=== PATIENT | female | born 1995 | race Caucasian/White ===

== ENCOUNTER 2020-03-13 13:11 | Emergency (ER) | payer MEDICAID ==
[2020-03-13] MEDS ORDERED: Sodium Chloride 0.9% 1,000 ML IV STA (13:37)
--- NOTE | 2020-03-13 13:42 | EDM.PDOC ---
ED HPI GENERAL MEDICAL PROBLEM - General Chief Complaint: Abdominal Pain Stated Complaint: R SIDE PAIN/NAUSEA/DIZZY/VOMITING Time Seen by Provider: 03/13/20 13:14 Source of Information: Reports: Patient History Limitations: Reports: No Limitations - History of Present Illness INITIAL COMMENTS - FREE TEXT/NARRATIVE: Patient is a 25-year-old female presenting to the emergency department with complaints of right lower quadrant abdominal pain, nausea, and vomiting. Abdominal pain started on Saturday which was about 4 days ago. She describes it as a sharp stabbing pain which worsens with movement or any activity. Pain has been present consistently since Saturday. States it does not wax and wane. She developed nausea and vomiting yesterday. She had a bowel movement ye which she states was normal. She is had some chills but denies a known fever. She has no chronic health conditions and denies any previous abdominal surgeries. Right Lower Abdomen Pain Score (Numeric/FACES): 4 - Related Data Allergies Allergy/AdvReac Type Severity Reaction Status Date / Time bee pollen Allergy Severe Anaphylactic Verified 03/13/20 13:21 Shock Home Meds: Home Meds . [No Known Home Meds] 03/13/20 [History] Past Medical History Respiratory History: Reports: Asthma - Infectious Disease History Infectious Disease History: Reports: Chicken Pox - Past Surgical History Female Surgical History: Reports: Other (See Below) Other Female Surgeries/Procedures: removal of infected placenta Social & Family History - Family History Family Medical History: Noncontributory - Tobacco Use Smoking Status *Q: Current Every Day Smoker Years of Tobacco use: 3 Packs/Tins Daily: 0.3 - Caffeine Use Caffeine Use: Reports: Coffee, Energy Drinks, Soda, Tea - Recreational Drug Use Recreational Drug Use: No ED ROS GENERAL - Review of Systems Review Of Systems: See Below Constitutional: Reports: Chills. Denies: Fever HEENT: Reports: No Symptoms Respiratory: Reports: No Symptoms. Denies: Shortness of Breath, Cough Cardiovascular: Reports: No Symptoms Endocrine: Reports: No Symptoms GI/Abdominal: Reports: Abdominal Pain, Nausea, Vomiting : Reports: No Symptoms Musculoskeletal: Reports: No Symptoms Skin: Reports: No Symptoms Neurological: Reports: No Symptoms Psychiatric: Reports: No Symptoms Hematologic/Lymphatic: Reports: No Symptoms Immunologic: Reports: No Symptoms ED EXAM, GI/ABD - Physical Exam Exam: See Below General Appearance: Alert, WD/WN, No Apparent Distress Respiratory/Chest: No Respiratory Distress, Lungs Clear, Normal Breath Sounds, No Accessory Muscle Use, Chest Non-Tender Cardiovascular: Normal Peripheral Pulses, Regular Rate, Rhythm, No Edema, No Gallop, No JVD, No Murmur, No Rub GI/Abdominal Exam: Normal Bowel Sounds, Soft, No Organomegaly, No Distention, No Abnormal Bruit, No Mass, Pelvis Stable, Tender (Right lower quadrant). No: Guarding, Rigid, Rebound Neurological: Alert, Oriented, CN II-XII Intact, Normal Cognition, Normal Gait, Normal Reflexes, No Motor/Sensory Deficits Psychiatric: Normal Affect, Normal Mood Skin Exam: Warm, Dry, Intact, Normal Color, No Rash Course - Vital Signs Last Recorded V/S: Last Vital Signs Temp 97.3 F 03/13/20 13:18 Pulse 101 H 03/13/20 13:18 Resp 19 03/13/20 13:18 BP 132/96 H 03/13/20 13:18 Pulse Ox 99 03/13/20 13:18 - Orders/Labs/Meds Orders: Active Orders 24 hr Category Date Time Status Peripheral IV Care [RC] . DIRECTED Care 03/13/20 13:25 Active Abdomen Pelvis w Cont [CT] Stat Exams 03/13/20 13:37 Taken Transvaginal Non OB [US] Stat Exams 03/13/20 16:20 Taken Sodium Chloride 0.9% [Normal Saline] 1,000 ml Med 03/13/20 13:37 Active IV NOW Sodium Chloride 0.9% [Saline Flush] Med 03/13/20 13:25 Active 10 ml FLUSH ASDIRECTED PRN Peripheral IV Insertion Adult [OM.PC] Stat Oth 03/13/20 13:24 Ordered Medication Orders Sodium Chloride (Normal Saline) 1,000 mls @ 150 mls/hr IV NOW STA Stop: 03/13/20 20:16 Last Admin: 03/13/20 14:13 Dose: 150 mls/hr Documented by: PATRIZIA Sodium Chloride (Saline Flush) 10 ml FLUSH ASDIRECTED PRN PRN Reason: Keep Vein Open Last Admin: 03/13/20 15:51 Dose: 10 ml Documented by: Admin: 10/11/20 14:13 Dose: 10 ml Documented by: PATRIZIA Labs: Laboratory Tests 03/13/20 03/13/20 03/13/20 Range/Units 13:50 13:50 13:55 WBC 8.78 (3.98-10.04) K/mm3 RBC 4.37 (3.98-5.22) M/mm3 Hgb 14.1 (11.2-15.7) gm/dl Hct 43.2 (34.1-44.9) % MCV 98.9 H (79.4-94.8) fl MCH 32.3 H (25.6-32.2) pg MCHC 32.6 (32.2-35.5) g/dl RDW Std Deviation 45.4 (36.4-46.3) fL Plt Count 355 (182-369) K/mm3 MPV 10.0 (9.4-12.3) fl Neut % (Auto) 71.9 H (34.0-71.1) % Lymph % (Auto) 20.4 (19.3-51.7) % Nye % (Auto) 6.6 (4.7-12.5) % Eos % (Auto) 0.7 (0.7-5.8) Baso % (Auto) 0.2 (0.1-1.2) % Neut # (Auto) 6.31 H (1.56-6.13) K/mm3 Lymph # (Auto) 1.79 (1.18-3.74) K/mm3 Nye # (Auto) 0.58 H (0.24-0.36) K/mm3 Eos # (Auto) 0.06 (0.04-0.36) K/mm3 Baso # (Auto) 0.02 (0.01-0.08) K/mm3 Sodium 139 (136-145) mEq/L Potassium 3.6 (3.5-5.1) mEq/L Chloride 103 (98-107) mEq/L Carbon Dioxide 23 (21-32) mEq/L Anion Gap 16.6 H (5-15) BUN 12 (7-18) mg/dL Creatinine 0.8 (0.55-1.02) mg/dL Est Cr Clr Drug Dosing 91.21 mL/min Estimated GFR (MDRD) > 60 (>60) mL/min BUN/Creatinine Ratio 15.0 (14-18) Glucose 85 (74-106) mg/dL Calcium 8.9 (8.5-10.1) mg/dL Total Bilirubin 0.3 (0.2-1.0) mg/dL AST 29 (15-37) U/L ALT 41 (14-59) U/L Alkaline Phosphatase 106 (46-116) U/L C-Reactive Protein 0.8 (<1.0) mg/dL Total Protein 7.0 (6.4-8.2) g/dl Albumin 3.6 (3.4-5.0) g/dl Globulin 3.4 gm/dL Albumin/Globulin Ratio 1.1 (1-2) Urine Color Light yellow (Yellow) Urine Appearance Clear (Clear) Urine pH 6.5 (5.0-8.0) Ur Specific Fri[place] 1.010 (1.005-1.030) Urine Protein Negative (Negative) Urine Glucose (UA) Negative (Negative) Urine Ketones Negative (Negative) Urine Occult Blood Negative (Negative) Urine Nitrite Negative (Negative) Urine Bilirubin Negative (Negative) Urine Urobilinogen 0.2 (0.2-1.0) Ur Leukocyte Esterase Negative (Negative) Urine RBC 0-5 (0-5) /hpf Urine WBC 0-5 (0-5) /hpf Ur Squamous Epith Cells 0-5 (0-5) /hpf Urine Bacteria Rare (FEW) /hpf Urine Mucus Not seen (FEW) /hpf SARS-CoV-2 RNA (LUCIANO) (NEGATIVE) 03/13/20 Range/Units 13:55 WBC (3.98-10.04) K/mm3 RBC (3.98-5.22) M/mm3 Hgb (11.2-15.7) gm/dl Hct (34.1-44.9) % MCV (79.4-94.8) fl MCH (25.6-32.2) pg MCHC (32.2-35.5) g/dl RDW Std Deviation (36.4-46.3) fL Plt Count (182-369) K/mm3 MPV (9.4-12.3) fl Neut % (Auto) (34.0-71.1) % Lymph % (Auto) (19.3-51.7) % Nye % (Auto) (4.7-12.5) % Eos % (Auto) (0.7-5.8) Baso % (Auto) (0.1-1.2) % Neut # (Auto) (1.56-6.13) K/mm3 Lymph # (Auto) (1.18-3.74) K/mm3 Nye # (Auto) (0.24-0.36) K/mm3 Eos # (Auto) (0.04-0.36) K/mm3 Baso # (Auto) (0.01-0.08) K/mm3 Sodium (136-145) mEq/L Potassium (3.5-5.1) mEq/L Chloride (98-107) mEq/L Carbon Dioxide (21-32) mEq/L Anion Gap (5-15) BUN (7-18) mg/dL Creatinine (0.55-1.02) mg/dL Est Cr Clr Drug Dosing mL/min Estimated GFR (MDRD) (>60) mL/min BUN/Creatinine Ratio (14-18) Glucose (74-106) mg/dL Calcium (8.5-10.1) mg/dL Total Bilirubin (0.2-1.0) mg/dL AST (15-37) U/L ALT (14-59) U/L Alkaline Phosphatase (46-116) U/L C-Reactive Protein (<1.0) mg/dL Total Protein (6.4-8.2) g/dl Albumin (3.4-5.0) g/dl Globulin gm/dL Albumin/Globulin Ratio (1-2) Urine Color (Yellow) Urine Appearance (Clear) Urine pH (5.0-8.0) Ur Specific Fri[place] (1.005-1.030) Urine Protein (Negative) Urine Glucose (UA) (Negative) Urine Ketones (Negative) Urine Occult Blood (Negative) Urine Nitrite (Negative) Urine Bilirubin (Negative) Urine Urobilinogen (0.2-1.0) Ur Leukocyte Esterase (Negative) Urine RBC (0-5) /hpf Urine WBC (0-5) /hpf Ur Squamous Epith Cells (0-5) /hpf Urine Bacteria (FEW) /hpf Urine Mucus (FEW) /hpf SARS-CoV-2 RNA (LUCIANO) Negative (NEGATIVE) Meds: Medications Generic Name Dose Route Start Last Admin Trade Name Freq PRN Reason Stop Dose Admin Sodium Chloride 1,000 mls @ 150 mls/hr 03/13/20 13:37 03/13/20 14:13 Normal Saline IV 03/13/20 20:16 150 mls/hr NOW STA Administration Sodium Chloride 10 ml 03/13/20 13:25 03/13/20 15:51 Saline Flush FLUSH 10 ml ASDIRECTED PRN Administration Keep Vein Open Discontinued Medications Generic Name Dose Route Start Last Admin Trade Name Freq PRN Reason Stop Dose Admin Diatrizoate Meglum/Diatrizoate Sod 90 ml 03/13/20 15:49 03/13/20 15:51 Gastrografin 37% PO 03/13/20 15:50 90 ml ONETIME ONE Administration Sodium Chloride 100 mls @ 4 mls/sec 03/13/20 15:49 Normal Saline IV 03/13/20 15:50 ONETIME ONE - Re-Assessments/Exams Free Text/Narrative Re-Assessment/Exam: Patient is a 25-year-old female presenting to the emergency department with complaints of 4-day history of right lower quadrant abdominal pain and development of nausea and vomiting yesterday. She is had no known fever but does state that she feels chilled at times. She denies any diarrhea. Had a normal bowel movement yesterday. She has no respiratory symptoms such as cough or shortness of breath. She has no history of previous abdominal surgeries. I have ordered a CBC, CMP, CRP, lipase, urinalysis, CT scan of the abdomen pelvis. She denies the need for pain or nausea medications at this time. We will start normal saline at 150 mils per hour. 03/13/20 16:29 CT neck scan of the abdomen pelvis showed indeterminate 3.8 x 1.8 cm right ovarian lesion. Recommend further evaluation with ultrasound if clinically indicated.. No pericecal soft tissue stranding. Patient's hematology was gross ly unremarkable. Urinalysis was negative for infection. I have ordered a non- OB transvaginal ultrasound to better assess the right ovary. 03/13/20 18:19 Transvaginal ultrasound showed 2 simple cysts within the right or ovary. Benign findings in the physiologic size range. No follow-up is needed. Discussed these findings with the patient. Her other blood work was completely unremarkable. Urinalysis was negative for infection. Her nausea and vomiting may be related to viral gastroenteritis. Zofran was offered for nausea, however she declined. Recommend routine Tylenol and ibuprofen as needed for pain. Clear liquid diet for 24 to 48 hours. She should establish care with a engine generator assembler as needed. Return to the ER for worsening symptoms. Departure - Departure Time of Disposition: 18:20 Disposition: Home, Self-Care 01 Condition: Good Clinical Impression: Abdominal pain Qualifiers: Abdominal location: right lower quadrant Qualified Code(s): R10.31 - Right lower quadrant pain Vomiting Qualifiers: Vomiting type: unspecified Vomiting Intractability: non-intractable Nausea presence: with nausea Qualified Code(s): R11.2 - Nausea with vomiting, unspecified - Discharge Information *PRESCRIPTION DRUG MONITORING PROGRAM REVIEWED*: No *COPY OF PRESCRIPTION DRUG MONITORING REPORT IN PATIENT AJYLIN: No Instructions: Abdominal Pain, Adult, [id number], Nausea and Vomiting, Adult Referrals: PCP,Not In Area [Primary Care Provider] - Forms: ED Department Discharge Additional Instructions: Your seen in the emergency department today for right lower quadrant abdominal pain over the course of the last 5 days as well as nausea and vomiting yesterday. He work-up included blood work, urinalysis, a CT scan of your abdomen pelvis, and a transvaginal ultrasound. Results of your work-up did show that you have 2 simple cysts in your right ovary which are a normal finding. Remainder of your work-up was completely unremarkable. Recommend that you use [id number] Tylenol and ibuprofen as needed for discomfort. Clear liquid diet for the next 24 to 48 hours and then advance as tolerated. I would recommend that you establish care with a engine generator assembler if you are going to be staying in the area. Number to schedule with 1 of the engine generator assembler in the clinic is [phone]. If you should experience any worsening symptoms, please not hesitate to return to the emergency department. Sepsis Event Note (ED) - Evaluation Sepsis Screening Result: No Definite Risk - Focused Exam Vital Signs: Vital Signs Temp Pulse Resp BP Pulse Ox 03/13/20 13:18 97.3 F 101 H 19 132/96 H 99 - My Orders Last 24 Hours: My Active Orders 03/13/20 13:24 Peripheral IV Insertion Adult [OM.PC] Stat 03/13/20 13:25 Peripheral IV Care [RC] . DIRECTED Sodium Chloride 0.9% [Saline Flush] 10 ml FLUSH ASDIRECTED PRN 03/13/20 13:37 Abdomen Pelvis w Cont [CT] Stat Sodium Chloride 0.9% [Normal Saline] 1,000 ml IV NOW 03/13/20 16:20 Transvaginal Non OB [US] Stat - Assessment/Plan Last 24 Hours: My Active Orders 03/13/20 13:24 Peripheral IV Insertion Adult [OM.PC] Stat 03/13/20 13:25 Peripheral IV Care [RC] . DIRECTED Sodium Chloride 0.9% [Saline Flush] 10 ml FLUSH ASDIRECTED PRN 03/13/20 13:37 Abdomen Pelvis w Cont [CT] Stat Sodium Chloride 0.9% [Normal Saline] 1,000 ml IV NOW 03/13/20 16:20 Transvaginal Non OB [US] Stat
[2020-03-13] MEDS: Sodium Chloride 0.9% 10 ML Syringe FLUSH PRN ×2 (14:13→15:51)
[2020-03-13] MEDS ORDERED: Diatrizoate Meglumine/Diatrizoate Sodium 37% 120 ML Bottle PO ONE (15:49)
[2020-03-13] MEDS ORDERED: Sodium Chloride 0.9% 100 ML IV ONE (15:49)
== END 2020-03-13 18:30 | disposition home or self-care (01) ==
LOC: JD.ED 13:11
DX: R10.31 Right lower quadrant pain (principal); R11.2 Nausea with vomiting, unspecified; J45.909 Unspecified asthma, uncomplicated; F17.210 Nicotine dependence, cigarettes, uncomplicated; Z20.828 Contact with and (suspected) exposure to other viral communicable diseases; Z91.030 Bee allergy status
CPT/HCPCS: 36415; 74177; 76830; 80053; 81001; 85025; 86140; 87635; 99284; J7030; Q9963; U0002

== ENCOUNTER 2021-05-01 09:20 | Emergency (ER) | payer SELFPAY ==
--- NOTE | 2021-05-01 10:40 | EDM.PDOC ---
ED HPI GENERAL MEDICAL PROBLEM - General Chief Complaint: Behavioral/Psych Stated Complaint: CHEST PAIN\\ DIZZY Time Seen by Provider: 05/01/21 10:19 Source of Information: Reports: Patient - History of Present Illness INITIAL COMMENTS - FREE TEXT/NARRATIVE: 26 yr old female with onset of anxiety that turned into a panic attack late last night. She did get short of breath, developed numbness and tingling around mouth, and bilat upper extem to "where I could hardly move for awhile" She still feels like it is hard to take a deep breath. Has not been recently ill. Chest Pain Score (Numeric/FACES): 4 - Related Data Allergies Allergy/AdvReac Type Severity Reaction Status Date / Time bee pollen Allergy Severe Anaphylactic Verified 05/01/21 09:34 Shock Home Meds: Home Meds LORazepam [Ativan] 0.5 mg PO ONETIME PRN #6 tablet 05/01/21 [Rx] Past Medical History Respiratory History: Reports: Asthma Psychiatric History: Reports: Anxiety - Infectious Disease History Infectious Disease History: Reports: Chicken Pox - Past Surgical History Female Surgical History: Reports: Other (See Below) Other Female Surgeries/Procedures: removal of infected placenta Social & Family History - Family History Family Medical History: No Pertinent Family History - Tobacco Use Tobacco Use Status *Q: Current Every Day Tobacco User Years of Tobacco use: 7 Packs/Tins Daily: 0.5 - Caffeine Use Caffeine Use: Reports: Coffee, Energy Drinks, Soda - Recreational Drug Use Recreational Drug Use: No ED ROS GENERAL - Review of Systems Review Of Systems: See Below Constitutional: Denies: Fever, Chills HEENT: Denies: Throat Pain Respiratory: Reports: Shortness of Breath. Denies: Cough Cardiovascular: Reports: Chest Pain GI/Abdominal: Denies: Abdominal Pain, Nausea, Vomiting Musculoskeletal: Denies: Arm Pain, Leg Pain Skin: Reports: No Symptoms Neurological: Reports: Numbness, Tingling ED EXAM, GENERAL - Physical Exam Exam: See Below General Appearance: Alert, No Apparent Distress Head: Atraumatic Neck: Supple Respiratory/Chest: No Respiratory Distress, Lungs Clear, Normal Breath Sounds. No: Rhonchi, Wheezing Cardiovascular: Regular Rate, Rhythm Extremities: No Pedal Edema Neurological: Alert, Oriented, No Motor/Sensory Deficits Skin Exam: Warm, Dry, Normal Color Course - Vital Signs Last Recorded V/S: Last Vital Signs Temp 97.3 F 05/01/21 09:31 Pulse 95 05/01/21 09:31 Resp 18 05/01/21 09:31 BP 132/87 05/01/21 09:31 Pulse Ox 100 05/01/21 09:31 - Re-Assessments/Exams Free Text/Narrative Re-Assessment/Exam: 05/02/21 18:53 cardiac moniter show NSR, no ectopy. Sats 98 to 100 % room air. Departure - Departure Time of Disposition: 10:34 Disposition: Home, Self-Care 01 Condition: Fair Clinical Impression: Hyperventilation syndrome - Discharge Information Prescriptions: LORazepam [Ativan] 0.5 mg PO ONETIME PRN #6 tablet PRN Reason: Anxiety Instructions: Hyperventilation Referrals: PCP,None [Primary Care Provider] - Forms: ED Department Discharge Additional Instructions: Your heart and lungs are good, oxygenation normal. As discussed the numbness and tingling is part of the hyperventilation syndrome due to chemistry changes that occur with that. Ativan 0.5 mg if you ever feel this coming on again. Follow up with your regular medical provider as needed. Return to ED as needed if symptoms worsening in any way. Sepsis Event Note (ED) - Evaluation Sepsis Screening Result: No Definite Risk
== END 2021-05-01 10:50 | disposition home or self-care (01) ==
LOC: JD.ED 09:20
DX: F45.8 Other somatoform disorders (principal); J45.909 Unspecified asthma, uncomplicated; Z72.0 Tobacco use; Z91.030 Bee allergy status
CPT/HCPCS: 99283

== ENCOUNTER 2024-09-18 13:48 | Emergency (ER) | payer MEDICAID ==
[2024-09-18] MEDS: Sodium Chloride 0.9% 1,000 ML IV ONE (14:49)
[2024-09-18 14:53] LABS: BASOPHILS ABSOLUTE AUTO 0.1 K/mm3 (0.0-0.2); BASOPHILS PERCENT AUTO 0.7 % (0.0-1.0); EOSINOPHILS ABSOLUTE AUTO 0.1 K/mm3 (0.0-0.4); EOSINOPHILS PERCENT AUTO 0.6 % (0.0-6.0); HEMATOCRIT 42.5 % (37.0-47.0); HEMOGLOBIN 14.7 gm/dl (12.0-16.0); IMMATURE GRAN ABSOLUTE AUTO 0.02 K/mm3 (0.00-0.05); IMMATURE GRAN PERCENT AUTO 0.2 % (0.0-0.4); LYMPHOCYTES PERCENT AUTO 12.3 % (24.0-44.0); MEAN CORPUSCULAR HEMOGLOBIN 36.2 pg (28.0-32.0); MEAN CORPUSCULAR HGB CONC 34.6 g/dl (32.0-36.0); MEAN CORPUSCULAR VOLUME 104.7 fl (83.0-99.0); MEAN PLATELET VOLUME 9.6 fl (9.4-12.3); MONOCYTES ABSOLUTE AUTO 0.6 K/mm3 (0.0-0.8); MONOCYTES PERCENT AUTO 6.7 % (0.0-8.0); NEUTROPHILS ABSOLUTE AUTO 6.5 K/mm3 (1.8-7.7); NEUTROPHILS PERCENT AUTO 79.5 % (41.0-71.0); PLATELET COUNT,PLT 202 K/mm3 (150-400); RED BLOOD CELL COUNT 4.06 M/mm3 (4.10-5.30)
[2024-09-18 15:32] LABS: A/G RATIO 1.1 (1-2); ALANINE AMINOTRANSFERASE,ALT 114 U/L (14-59); ALKALINE PHOSPHATASE 101 U/L (46-116); ANION GAP 20.1 (5-15); ASPARTATE AMNIOTRANSFERASE,AST 200 U/L (15-37); BILIRUBIN TOTAL 1.3 mg/dL (0.2-1.0); BLOOD UREA NITROGEN,BUN 4 mg/dL (7-18); BUN/CREATININE RATIO 6.7 (14-18); CALCIUM 9.1 mg/dL (8.5-10.1); CARBON DIOXIDE,CO2 24 mEq/L (21-32); CHLORIDE,CL 99 mEq/L (98-107); CREATININE 0.6 mg/dL (0.55-1.02); ESTIMATED GFR 123 mL/min (>60); GLUCOSE RANDOM 81 mg/dL (70-99); MAGNESIUM 1.3 mg/dL (1.8-2.4); POTASSIUM,K 3.1 mEq/L (3.5-5.1); PROTEIN TOTAL,TP 7.8 g/dl (6.4-8.2); SODIUM,NA 140 mEq/L (136-145)
[2024-09-18] MEDS: Potassium Chloride 20 MEQ Tab.ER PO ONE (16:35)
[2024-09-18] MEDS: Magnesium Sulf/Wat 2 GM/50 mL 2 GM/50 ML BAG IV ONE (16:35)
[2024-09-18 16:49] LABS: APPEARANCE,URINE SLT CLOUDY (Clear); BILIRUBIN,URINE 1+ (Negative); COLOR,URINE AMBER (Yellow); GLUCOSE,URINE NEGATIVE (Negative); KETONES,URINE 2+ (Negative); LEUKOCYTE ESTERASE,URINE NEGATIVE (Negative); NITRITE,URINE POSITIVE (Negative); OCCULT BLOOD,URINE NEGATIVE (Negative); PH,URINE 6.5 (5.0-8.0); PROTEIN,URINE 2+ (Negative)
[2024-09-18 16:52] LABS: BACTERIA,URINE MANY /hpf (FEW); MUCUS,URINE MODERATE /hpf (FEW); RBC,URINE 0-5 /hpf (0-5); SQUAMOUS EPITHELIAL CELLS,UR 0-5 /hpf (0-5)
[2024-09-18] MEDS: Iopamidol 612 MG/ML 100 ML Bottle IVPUSH ONE (16:53)
[2024-09-18] MEDS: Sodium Chloride 0.9% 10 ML Syringe FLUSH ONE (16:53)
[2024-09-18] MEDS: cefTRIAXone 1 GM Vial IVPUSH ONE (17:42)
== END 2024-09-18 17:49 | disposition home or self-care (01) ==
LOC: JD.ED 13:48
DX: N30.01 Acute cystitis with hematuria (principal); M62.838 Other muscle spasm; Z91.030 Bee allergy status; Z79.899 Other long term (current) drug therapy
CPT/HCPCS: 36415; 70450; 74177; 80053; 80307; 81001; 81025; 83735; 85025; 87086; 96361; 96374; 96375; 99285; A9270; J0696; J3475; J7030; Q9967; 99284

== ENCOUNTER 2025-02-08 18:47 | Emergency (ER) | payer SELFPAY ==
[2025-02-08] MEDS: Dexamethasone 10 MG/ML SDV IV ONE (20:26)
[2025-02-08 20:27] LABS: BASOPHILS ABSOLUTE AUTO 0.0 K/mm3 (0.0-0.2); BASOPHILS PERCENT AUTO 0.3 % (0.0-1.0); EOSINOPHILS ABSOLUTE AUTO 0.0 K/mm3 (0.0-0.4); EOSINOPHILS PERCENT AUTO 0.2 % (0.0-6.0); IMMATURE GRAN ABSOLUTE AUTO 0.06 K/mm3 (0.00-0.05); IMMATURE GRAN PERCENT AUTO 0.5 % (0.0-0.4); LYMPHOCYTES ABSOLUTE AUTO 0.7 K/mm3 (1.0-4.8); LYMPHOCYTES PERCENT AUTO 5.5 % (24.0-44.0); MEAN PLATELET VOLUME 9.4 fl (9.4-12.3); MONOCYTES ABSOLUTE AUTO 0.7 K/mm3 (0.0-0.8); MONOCYTES PERCENT AUTO 5.5 % (0.0-8.0); NEUTROPHILS ABSOLUTE AUTO 11.1 K/mm3 (1.8-7.7); NEUTROPHILS PERCENT AUTO 88.0 % (41.0-71.0); NRBC ABSOLUTE 0.00 (0.00-0.02); NRBC PERCENT 0.0 % (0.0-0.2); PLATELET COUNT,PLT 248 K/mm3 (150-400); RED BLOOD CELL COUNT 3.91 M/mm3 (4.10-5.30); WHITE BLOOD CELL COUNT,WBC 12.64 K/mm3 (3.9-11.3)
[2025-02-08] MEDS: Ampicillin/Sulbactam Na 3 GM in Sodium Chloride 0.9% 100 ML IV ONE (20:27)
[2025-02-08] MEDS: Acetaminophen/HYDROcodone 325-5 MG Tab PO ONE (21:04)
[2025-02-08 21:15] LABS: A/G RATIO 1.0 (1-2); ALANINE AMINOTRANSFERASE,ALT 96.0 U/L (14-59); ASPARTATE AMNIOTRANSFERASE,AST 157.0 U/L (15-37); BILIRUBIN TOTAL 0.8 mg/dL (0.2-1.0); BLOOD UREA NITROGEN,BUN 4.0 mg/dL (7-18); CARBON DIOXIDE,CO2 24.0 mEq/L (21-32); CHLORIDE,CL 101.0 mEq/L (98-107); CREATININE 0.6 mg/dL (0.55-1.02); EST CRCL DRUG DOSING (CG) 126.01 mL/min; ESTIMATED GFR 122.0 mL/min (>60); GLUCOSE RANDOM 105.0 mg/dL (70-99); POTASSIUM,K 3.6 mEq/L (3.5-5.1); PROTEIN TOTAL,TP 7.5 g/dl (6.4-8.2); SODIUM,NA 140.0 mEq/L (136-145)
[2025-02-08] MEDS: Iopamidol 612 MG/ML 100 ML Bottle IVPUSH ONE (21:26)
[2025-02-08] MEDS: Amoxicillin/Clavulanate K 875-125 MG Tab PO ONE (22:34)
== END 2025-02-08 22:35 | disposition home or self-care (01) ==
LOC: JD.ED 18:47
DX: J36 Peritonsillar abscess (principal); F17.210 Nicotine dependence, cigarettes, uncomplicated; Z91.030 Bee allergy status; Z79.899 Other long term (current) drug therapy
CPT/HCPCS: 36415; 70491; 80053; 85025; 87651; 96365; 96375; 99284; A9270; J0295; J1100; Q9967

== ENCOUNTER 2025-02-11 08:32 | Emergency (ER) | payer SELFPAY ==
[2025-02-11] MEDS ORDERED: Dexamethasone 4 MG/ML SDV PO ONE (11:12)
[2025-02-11] MEDS: Ketorolac 30 MG/ML SDV IM ONE (11:14)
[2025-02-11] MEDS: Dexamethasone 10 MG/ML SDV PO ONE (11:27)
== END 2025-02-11 11:30 | disposition home or self-care (01) ==
LOC: JD.ED 08:32
DX: J03.90 Acute tonsillitis, unspecified (principal); Z91.030 Bee allergy status; Z79.899 Other long term (current) drug therapy
CPT/HCPCS: 96372; 99283; J1100; J1885